=== PATIENT | female | born 1945 | race Caucasian/White ===

== ENCOUNTER 2025-02-16 12:30 | Emergency (ER) | payer OTHER, MEDICARE, SELFPAY ==
[2025-02-16] VITALS (25 sets, daily range): BP systolic 126–181; BP diastolic 52–133; PULSE 81; O2SAT 95; BMI 41.8
--- NOTE | 2025-02-16 12:46 | ED.MUSCINJ ---
HPI-Injury
<Jaiden Espana PA-C - Last Filed: 02/16/25 17:46>
General
Chief Complaint: Musculo-Skeletal Complaint
Source: patient
Exam Limitations: none
Time Seen by Provider: 02/16/25 12:38
History of Present Illness-Injury
Initial Injury comments:
79-year-old female type II diabetic lives at home presents via EMS after feeling a pop in her left hip. She was leaning over to apply lotion to her legs. She has a remote history of left hip pain. 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
She feels that her hip is dislocated again. No other complaints at this time
Past History
<Jaiden Espana PA-C - Last Filed: 02/16/25 17:46>
Past History
ED Past Medical History: Psychiatric (bipolar) and Other (recurrent pancreatitis, diverticulosis with hx of diverticulitis)
ED Past Surgical History: Appendectomy and Gynecological (total hysterectomy)
Social History
Tobacco: Non-smoker
Alcohol: Occasional
Drug: None
Personal:
Living: with family
Phy Exam
<Jaiden Espana PA-C - Last Filed: 02/16/25 17:46>
Physical Exam
Physical Exam:
General: Well-appearing female no acute respiratory distress
HEENT: Normocephalic atraumatic
Musculoskeletal exam: Left hip tender diffusely. Right leg is slightly shorter but this is a chronic finding. 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
Vascular: Left foot is warm to the touch with a palpable pulse dorsally
Injury Course
<Jaiden Espana PA-C - Last Filed: 02/16/25 17:46>
Orders/Labs/Results
Orders:
Orders
02/16/25 12:45
HYDROmorphone [Dilaudid] 0.5 mg IV NOW STA
02/16/25 12:46
CR Hip - LT without Pel 1 Vw Urgent
Comment:
Reason For Exam: pain, possible dislocation
02/16/25 13:28
CR Hip - LT without Pel 1 Vw Urgent
Comment:
Reason For Exam: post reduction
02/16/25 13:29
Propofol [Diprivan] 20 ml .ROUTE .STK-MED
02/16/25 14:09
CR Hip - LT without Pel 1 Vw Urgent
Comment:
Reason For Exam: post reduction of left hip
02/16/25 14:43
Case Management Consult ONCE
Case Management Consult: Discharge Planning
02/16/25 15:32
PT Consult [Pt Eval And Treat] Urgent
Treatment: weight bearing as tolerated
Activity Level: Ambulate
<Erick Jones MD - Last Filed: 02/17/25 06:05>
Orders/Labs/Results
Orders:
Orders
02/16/25 12:45
HYDROmorphone [Dilaudid] 0.5 mg IV NOW STA
02/16/25 12:46
CR Hip - LT without Pel 1 Vw Urgent
Comment:
Reason For Exam: pain, possible dislocation
02/16/25 13:28
CR Hip - LT without Pel 1 Vw Urgent
Comment:
Reason For Exam: post reduction
02/16/25 13:29
Propofol [Diprivan] 20 ml .ROUTE .STK-MED
02/16/25 14:09
CR Hip - LT without Pel 1 Vw Urgent
Comment:
Reason For Exam: post reduction of left hip
02/16/25 14:43
Case Management Consult ONCE
Case Management Consult: Discharge Planning
02/16/25 15:32
PT Consult [Pt Eval And Treat] Urgent
Treatment: weight bearing as tolerated
Activity Level: Ambulate
Procedures
<Jaiden Espana PA-C - Last Filed: 02/16/25 17:46>
Moderate Sedation
ASA Risk Score: Class II
Chart and allergies reviewed: Yes
Consent for anesthesia obtained: Yes
Time out completed (validating right patient & procedure): Yes
Moderate Sedation Start Time(when first medication is given): 13:45
History of difficult intubation: No
Airway free of obstruction: Yes
Patient has a gag reflex: Yes
Patient is able to open mouth: Yes
Patient has no dentures: Yes
Patient has no loose teeth: Yes
Medication administered by Provider during Moderate Sedation: IV Propofol (mg)
Total dose administered: 170
Time drug administered: 13:45
Moderate Sedation Procedure End Time: 14:17
<Jaiden Espana PA-C - Last Filed: 02/16/25 17:46>
MDM/Problems Addressed
Differential Diagnosis Includes:
Left hip pain likely dislocation other things to consider would be fracture or sprain
X-rays pending
<Jaiden Espana PA-C - Last Filed: 02/16/25 17:46>
*Critical Care Note
Total Time (30-74mins, 75-104mins- exclusive of procedures): Not Applicable
<VINAYAK Smalls Last Filed: 02/16/25 17:46>
Update Note
Update Note:
Initial x-rays of the left hip demonstrated left prosthetic hip dislocation. Written consent obtained for moderate sedation and closed reduction. Moderate sedation performed by emergency room attending. Total of 170 mg of propofol were required.
The left hip was reduced with hip flexion longitudinal traction and internal rotation. Postreduction films demonstrated successful reduction.
Patient recovered from sedation and was then seen and evaluated by physical therapy and case management. She expressed initially her inability to go home and wants stay in the hospital. We explained to her that there is no medical indication for
hospital admission offered her skilled rehab however she did want to stay. Spoke with the patient's son as well as her friend Russell who is the neighbor. He is able to help her get back into the house. Will arrange wheelchair van rotation back to
her house.
ED Attending Note
<Jaiden Espana PA-C - Last Filed: 02/16/25 17:46>
-
Portions of this chart may have been created with voice recognition software.� Occasional wrong word or��sound alike� substitutions may have occurred due to the inherent limitations of voice recognition software.
<Erick Jones MD - Last Filed: 02/17/25 06:05>
ED Attending Note
Patient seen and examined by attending physician: Yes
ED Attending Note:
Patient with history of left hip surgery and subsequent dislocation, presents to ED secondary to concern for recurrent dislocation, when she felt 'pop sensation', as she reached down to apply lotion to her leg. Denies falling down. No loss of
sensation or weakness. Denies any other injuries.
Physical Exam
General: moderate painful distress, not acutely ill. afebrile
Head: nc/at. eomi
Neck: supple. normal range of motion
Neuro: alert and oriented x 3. no focal neurological deficits
Skin: no rash
Psychiatric: well kept. interactive and cooperative
Extremities: diffuse left hip tenderness to palpation
History, exam, and x-ray consistent with left hip dislocation.
Procedure consent on the chart.
Left hip dislocation successfully reduced after propofol sedation, confirmed by x-ray.
Discharge Plan
Departure
Patient Disposition: Home (Routine Discharge)
Date of Disposition: 02/16/25
Time of Disposition: 17:44
Patient with high blood pressure during this ER visit?: No
Discharge Problem:
Dislocation, hip
Instructions: Muscle and Bone Pain (DC), MODERATE SEDATION ADULT
Prescriptions:
No Action
.Creon
2 cap PO AC
Patient Comments:
aspirin [Nohemi Chewable Aspirin] 81 MG tablet,chewable
81 mg PO Daily
sennosides [senna] 8.6 MG tablet
8.6 mg PO BID Qty: 60 0RF
polyethylene glycol 3350 17 GRAMS powder in packet
17 grams feeding tube DAILY Qty: 30 0RF
docusate sodium 100 MG capsule
100 mg PO BID Qty: 60 0RF
Referrals:
Talisha Smart MD [Family Provider] -
Activity Restrictions/Additional Instructions:
Use of brace when able. Please follow-up with the orthopedic team. Return as needed otherwise
Interventions
Interventions:
*Risk Screen - Suicide Last Done: 02/16/25 12:34
*General Assessment Last Done: 02/16/25 12:34
*Neglect/Abuse Screening Last Done: 02/16/25 12:34
*ED- Fall Risk Assessment Last Done: 02/16/25 12:34
*ED COVID-19 Vaccine History Last Done: 02/16/25 12:34
*Nursing Disposition Last Done: 02/16/25 20:05
ED-Musculoskeletal Assessment Last Done: 02/16/25 12:34
Discharge Date and Time
Discharge Date/Time: 02/16/25 20:05
Print Language: SIERRA LEONEAN
[2025-02-16] MEDS: DILAUDID 0.5 MG IV (13:05)
--- NOTE | 2025-02-16 13:20 | EDRN ---
the pt pressed the call almendarez and this RN entered the pts room, the pt stated that she needed to urinate, this RN explained the use of the pure wick to the pt and the pt was agreeable to using it, pure wick in place
--- NOTE | 2025-02-16 15:52 | EDRN ---
case management currently at the pts bedside
--- NOTE | 2025-02-16 16:05 | EDRN ---
physical therapy currently at the pts bedside
--- NOTE | 2025-02-16 16:21 | CM ---
Addendum entered by Megan Huff 02/16/25 16:49:
VM left for patient son at work and for neighbor and connected neighbor to the ED.
Original Note:
Patient seen at bedside. Patient lives in a town home but patient stays on the first floor. Patient has no aides or Vn at this time. Patient was approved for waiver services but does not have anyone currently working with her. Patient PCP just
retired and she is starting next week with Dr. Tyrell Guadalupe in [place] not does not yet have a physician appointment. Patient neighbor is Russell Sweeney [phone] and Patient son locally is working until 11pm. Patient does not want to go
to SNF and stated that she does not have a credit card at this time, would ask son to pay for transportation if she did not qualify for an ambulance. Patient has a wheelchair, powerchair and comode in the home as well as a ramp. CM spoke with
therapy who attempted to work with patient but she did not want to show PT how she mobilizes. Patient does not have a phone at this time. CM will continue to follow for discharge planning needs.
Plan; home with family supports, pending PCP appointment and order for VN to follow
--- NOTE | 2025-02-16 16:50 | EDRN ---
this RN entered the pts room to check on the pt and the pt was soiled with urine despite using the pure wick, this RN and Corinn PCT cleaned the pt, changed the pts gown, linens and covidian pad, the pt was repositioned for comfort
--- NOTE | 2025-02-16 17:37 | EDRN ---
case management was in to see the pt and per case management the pt refused to be sent to a correction/rehab, Jason PERALES currently at the pts bedside discussing discharge, the pts sons were notified that the pt will be sent home via
transport
== END 2025-02-16 20:05 | disposition home or self-care (01) ==
LOC: EMR 12:30
PROVIDERS: EMERGENCY PHYSICIAN Emergency Medicine; FAMILY PHYSICIAN Internal Medicine
DX: T84.021A Dislocation of internal left hip prosthesis, initial encounter (principal); X58.XXXA Exposure to other specified factors, initial encounter; F31.9 Bipolar disorder, unspecified; E11.9 Type 2 diabetes mellitus without complications; Z90.49 Acquired absence of other specified parts of digestive tract; Z90.710 Acquired absence of both cervix and uterus; Z96.642 Presence of left artificial hip joint
CPT/HCPCS: 99284; 27265; 99152; 96374; 73501